=== PATIENT | male | born 1995 | race Hispanic/Latino ===

== ENCOUNTER 2018-02-23 06:16 | Emergency (ER) | payer MEDICAID, OTHER ==
[2018-02-23] MEDS ORDERED: TETANUS/DIPHTHERIA TOXOID [ADULT] 0.5 ML VIAL IM ONE (06:30)
== END 2018-02-23 06:51 | disposition home or self-care (01) ==
LOC: EDH 06:16
DX: S50.852A Superficial foreign body of left forearm, initial encounter (principal); W45.8XXA Other foreign body or object entering through skin, initial encounter; Y93.89 Activity, other specified; Y92.89 Other specified places as the place of occurrence of the external cause; Y99.8 Other external cause status
CPT/HCPCS: 90471; 90714

== ENCOUNTER 2020-01-15 12:59 | Emergency (ER) | payer SELFPAY ==
[2020-01-15] MEDS ORDERED: SODIUM CHLORIDE 3% FOR INHALATION 4 ML/AMP VIAL.NEB IH ONE (14:00)
[2020-01-15] MEDS ORDERED: IPRATROPIUM/ALBUTEROL SULFATE 3 ML SOLUTION IH ONE (14:00)
== END 2020-01-15 13:46 | disposition home or self-care (01) ==
LOC: EDH 12:59
DX: R10.9 Unspecified abdominal pain (principal)
CPT/HCPCS: 99281